=== PATIENT | female | born 1985 | race American Indian/Alaskan Native ===

== ENCOUNTER 2020-01-04 03:15 | Emergency (ER) | payer SELFPAY ==
[2020-01-04 03:21] VITALS: BP 112/80
== END 2020-01-04 05:49 | disposition home or self-care (01) ==
LOC: ED 03:15
DX: S93.401A Sprain of unspecified ligament of right ankle, initial encounter (principal); X58.XXXA Exposure to other specified factors, initial encounter; Y93.89 Activity, other specified; Y92.89 Other specified places as the place of occurrence of the external cause; Y99.8 Other external cause status
CPT/HCPCS: 99283